=== PATIENT | female | born 1985 | race American Indian/Alaskan Native ===

== ENCOUNTER 2021-02-16 08:42 | Outpatient (CLI) | payer OTHER ==
--- NOTE | 2021-02-16 10:17 | Fluoroscopy Report ---
Barium swallow Indication: Preoperative evaluation for gastric sleeve surgery. Technique: Single and double contrast barium technique utilized to evaluate the esophagus. Findings: To begin the exam, swallowing was evaluated in the lateral position under direct fluorosco py. Swallowing was normal. No mucosal irregularity, mass, mass effect, or critical stenosis. There were no abnormal tertiary c ontractions as seen with dysmotility. No gastroesophageal reflux. Impression: Unremarkable exam. Fluoroscopic time: 0.9 minutes Number of fluoroscopic images: 13 Signer Name: Hira Ramos MD Signed: 02/16/2021 10:13 AM Workstation Name: [id number]
== END 2021-02-16 08:43 | disposition home or self-care (01) ==
LOC: FLUORO 08:42
PROVIDERS: ATTEND Surgery
DX: E66.01 Morbid (severe) obesity due to excess calories (principal)
CPT/HCPCS: 74221

== ENCOUNTER 2021-02-21 07:28 | Inpatient (IN) | payer OTHER ==
[2021-02-16 11:05] LABS: Hematocrit 38.5 % (30.3-42.9); Hemoglobin 12.6 gm/dl (10.1-14.3); Mean Corpuscular HGB Conc 33 % (30-34); Mean Corpuscular Volume 82 fl (79-97); Platelet Count 397 K/mm3 (140-440); Red Blood Count 4.68 M/mm3 (3.65-5.03); Red Cell Distribution Width 14.3 % (13.2-15.2)
[2021-02-16 11:35] LABS: Alanine Aminotransferase 18 units/L (7-56); Albumin 4.3 g/dL (3.9-5); Blood Urea Nitrogen 18 mg/dL (7-17); Calcium 9.8 mg/dL (8.4-10.2); Hemolysis Index 0
[2021-02-16 11:45] LABS: BUN/Creatinine Ratio 36
--- NOTE | 2021-02-16 16:39 | Anesthesia Consultation ---
Anesthesia Consult and Med Hx Date of service: 02/21/21 - Airway Anesthetic Teeth Evaluation: Good ROM Head & Neck: Adequate Mental/Hyoid Distance: Adequate Mallampati Class: Class II Intubation Access Assessment: Probably Good - Pulmonary Exam CTA: Yes - Cardiac Exam Cardiac Exam: RRR - Pre-Operative Health Status ASA Pre-Surgery Classification: ASA3 Proposed Anesthetic Plan: General - Pulmonary Hx Smoking: No Hx Respiratory Symptoms: No (PFTs reviewed) Hx Sleep Apnea: Yes (severe per sleep study; compliant w/ CPAP) - Cardiovascular System Hx Hypertension: No Hx Heart Attack/AMI: No (recent normal stress test) Hx Percutaneous Transluminal Coronary Angioplasty (PTCA): No Hx Cardia Arrhythmia: No - Central Nervous System CVA: No - Gastrointestinal Hx Gastroesophageal Reflux Disease: Yes - Endocrine Hx Renal Disease: No Hx Liver Disease: No Hx Insulin Dependent Diabetes: No Hx Non-Insulin Dependent Diabetes: No Hx Thyroid Disease: No - Other Systems Hx Obesity: Yes (BMI 42) - Additional Comments Anesthesia Medical History Comments: No hx anesthetic complications. Medical eval, sleep study, PFTs, and stress test results on chart.
[~2021-02-21 07:28] MED LIST: ENOXAPARIN 40 MG/0.4 ML INJ SUB-Q NR; GABAPENTIN 500 MG/10 ML ORAL LIQD PO NR; MIDAZOLAM 2 MG/2 ML INJ IV NR; SCOPOLAMINE TRANSDERMAL PATCH 72 HR TD NR
[2021-02-21] MEDS ORDERED: LACTATED RINGERS 1,000 ML IV SCH ×2 (08:15→15:00)
[2021-02-21] MEDS ORDERED: ENOXAPARIN 40 MG/0.4 ML INJ SUB-Q NR (09:00)
[2021-02-21] MEDS ORDERED: ONDANSETRON 4 MG/2 ML INJ IV PRN (09:12)
[2021-02-21] MEDS ORDERED: HYDROmorphone 1 MG/1 ML INJ IV PRN ×2 (09:12)
--- NOTE | 2021-02-21 09:13 | Anesthesia Day of Surgery ---
Anesthesia Day of Surgery - Day of Surgery Patient Examined: Yes Patient H&P Reviewed: Yes Patient is NPO: Yes
[2021-02-21] MEDS ORDERED: SCOPOLAMINE TRANSDERMAL PATCH 72 HR TD SCH (10:00)
[2021-02-21] MEDS: ACETAMINOPHEN IV 1,000 MG/100 ML BOTTLE IV NR ×2 (10:40→21:33)
[2021-02-21] MEDS ORDERED: LIDOCAINE 1%/EPINEPHRINE 1:100,000 VIAL (20 ML) INFILTRATI ONE ×2 (10:46→12:10)
[2021-02-21] MEDS ORDERED: BUPIVACAINE/PF (0.25%) 2.5 MG/ML 30 ML VIAL INFILTRATI ONE ×2 (10:46→12:10)
[2021-02-21] MEDS ORDERED: KETAMINE/STERILE WATER 50 MG/ML SYRINGE ONE (10:49)
[2021-02-21] MEDS ORDERED: ONDANSETRON 4 MG/2 ML INJ ONE (10:49)
[2021-02-21] MEDS ORDERED: ROCURONIUM 50 MG/5 ML INJ IV ONE ×2 (10:49→13:02)
[2021-02-21] MEDS ORDERED: dexAMETHasone 20 MG/5 ML VIAL ONE (10:49)
[2021-02-21] MEDS ORDERED: KETOROLAC 30 MG/1 ML INJ ONE (10:49)
[2021-02-21] MEDS ORDERED: LIDOCAINE (2%) 20 MG/1 ML VIAL 20 ML MDV INFILTRATI ONE (10:51)
[2021-02-21] MEDS ORDERED: MAGNESIUM SULFATE 4 GM/100 ML BAG IV ONE (10:52)
[2021-02-21] MEDS ORDERED: SODIUM CHLORIDE 0.9% IRR 1,500 ML BOTTLE IR ONE (12:10)
[2021-02-21] MEDS ORDERED: LIDOCAINE MPF (2%) 20 MG/1 ML VIAL 5 ML ONE (13:02)
[2021-02-21] MEDS ORDERED: PHENYLEPHRINE/NS 1,000 MCG/10 ML SYRINGE (OR USE) IV ONE (13:02)
[2021-02-21] MEDS ORDERED: SODIUM CHLORIDE P/F VIAL 10 ML 20 ML ONE (13:03)
[2021-02-21] MEDS ORDERED: SUGAMMADEX SODIUM 200 MG/2 ML VIAL IV ONE (13:16)
[2021-02-21] MEDS ORDERED: SODIUM CHLORIDE 0.9% 1000 ML 1,000 ML ONE (13:41)
[2021-02-21] MEDS ORDERED: METOCLOPRAMIDE 10 MG/2 ML INJ IV PRN (14:03)
--- NOTE | 2021-02-21 14:12 | Operative Report ---
Operative Report Operative Report: DATE:02/21/2021 Surgeon: Jenna Chen MD Personal Protection Specialist surgeon: Latesha petty CSA MD Pre-op Dx: morbid obesity, hiatal hernia Post-op Dx: morbid obesity, hiatal hernia Procedure: 1. laparoscopic sleeve gastrectomy, 2. hiatal hernia repair Anesthesia: GETA and TAP block EBL: <10ml Specimen: gastric remnant Complication: none immediate Indication: 35 year old female with a history of morbid obesity . Pt is here for sleeve gastrectomy for weight loss to achieve healthier weight and improve or resolve his co-morbidities. she expressed understanding of the risks and benefits. PROCEDURE IN DETAIL: After consent was reviewed, patient was taken back to the operating room, where patient was placed supine on the bed with both arms out. The patient's legs were doubly strapped to the bed. Patient had a foot board in place. Patient had a body warmer placed by anesthesia. General anesthesia was induced with successful endotracheal intubation. Patient was then prepped and draped in normal sterile surgical fashion. After a time-out was called, I made a stab incision in the left subcostal area and placed a Veress needle through this incision and insufflated the abdomen to 18 mmHg pressure. I then counted down a handsbreadth below the xiphoid process in the midline and slightly left lateral injected local anesthetic and made about 1 cm transverse incision. I then used a 5-mm Optiview trocar to enter into the abdomen. There was no gross injury to any intra-abdominal structures. I then placed a 30-degree scope through this port and inspected the abdomen. I then placed a 8-mm port in the right upper quadrant, and 1 5mm in the epigastric area below the costovertebral angle. I then placed a 15-mm port about a handsbreadth in the right mid abdomen. After which a 5mm port was placed in left upper quadrant port along the anterior axillary line in a similar fashion. A liver retractor was placed to the epigastric port to elevate the left lateral lobe and liver. There was a significant hiatal hernia appreciated and was accentuated with right and left crural dissection 360 degrees. The hiatus was noted to be about 3cm at its widest point with 2 cm of proximal stomach above the level of the hiatus. A 1/2 inch matheus drain was placed around the GE junction and used to manipulate the area to get a better full circumferential dissection. Hiatal hernia sac was dissected from the crura until the GE junction was resting about 2cm below the level of the diaphragm without tension. An anterior and posterior crura-plasty was preformed via U-stitches using surgidac suture. The anterior gastric fat pad was excised. Starting approximately 6 cm proximal to the pylorus, using a LigaSure device the short gastrics were taken all the way to the left rich. Once the lateral portion of the stomach was mobile anesthesia passed a 40 Moroccan bougie along the medial aspect to act as a stent. Using serial firings of endoscopic stapler to gold, followed by 4 blue, the lateral portion of the stomach was transected making sure to did not close to the 2 cm to the incisura. All staple loads were supported with Ethicon buttress strips. The sleeve stomach was seen to be without kink obstruction or twisting. The pressure was decreased to 10 mmHg. The staple line was inspected for approximately 5 minutes. There was no significant bleeding appreciated except for a slight loose at the most distal portion of the staple line. Bleeding was minimal and easily controlled two hemoclips at the distal staple line. Tisseel was then sprayed along the entirety of the staple line. The liver retractor was removed. A TAP block was performed with 60ml of 0.25% marcaine along bilateral mid axillary lines starting from the subcostal region to just below the level of the umbilicus This was after the gastric remnant was grasped and pulled into the 15 mm trocar site. The stomach was extracted via the 15 mm trocar site. After the fascia had to be stretched with a Noa clamp to easily remove the stomach, the fascia was closed using a juno ke device at the level of the fascia with an 0 PDS. trocars were removed under direct visualization. All skin incisions were closed with 4-0 Monocryl followed by Dermabond. Patient was awoken, extubated, and taken to recovery stable condition. All counts were correct.
[2021-02-21] MEDS ORDERED: hydrALAZINE 20 MG/1 ML INJ IV PRN (15:00)
[2021-02-21] MEDS: KETOROLAC 30 MG/1 ML INJ IV SCH ×2 (16:12→21:41)
[2021-02-21] MEDS: ACETAMINOPHEN IV 1,000 MG/100 ML BOTTLE IV SCH ×2 (16:12→21:55)
--- NOTE | 2021-02-21 16:14 | Post Anesthesia Evaluation ---
- Post Anesthesia Evaluation Patient Participated: Yes Airway Patent: Yes Stable Respiratory Function: Yes Nausea/Vomiting: No Temp > 96.8F: Yes Pain Manageable: Yes Adequeate Hydration: Yes Anesthesia Complications: No Block Receding Appropriately: Not Applicable Patient on Ventilator: No
[2021-02-21] MEDS: PANTOPRAZOLE 40 MG INJ IV SCH (19:07)
[2021-02-21] MEDS: MORPHINE 2 MG/1 ML INJ IV PRN ×2 (19:07→23:16)
[2021-02-21] MEDS: ONDANSETRON 4 MG/2 ML INJ IV PRN ×2 (21:33→21:41)
[2021-02-21] MEDS: metroNIDAZOLE/NS 500 MG/100 ML 500 MG/100 ML BAG IV NR ×2 (21:34→21:41)
[2021-02-21] MEDS: metroNIDAZOLE/NS 500 MG/100 ML 500 MG/100 ML BAG IV SCH (21:54)
[2021-02-21] MEDS: ceFAZolin/NS 1 GM/50 ML 1 GM/50 ML BAG IV SCH (23:16)
[2021-02-22] MEDS: ONDANSETRON 4 MG/2 ML INJ IV PRN ×3 (02:51→16:55)
[2021-02-22] MEDS: SIMETHICONE 80 MG CHEW TAB PO PRN ×2 (02:51→17:44)
[2021-02-22] MEDS: KETOROLAC 30 MG/1 ML INJ IV SCH ×3 (02:51→16:53)
[2021-02-22] MEDS: ceFAZolin/NS 1 GM/50 ML 1 GM/50 ML BAG IV SCH (04:19)
[2021-02-22 05:19] LABS: Basophils # (Auto) 0.1 K/mm3 (0.0-0.1); Basophils % (Auto) 0.6 % (0.0-1.8); Eosinophils % (Auto) 0.1 % (0.0-4.3); Hematocrit 35.2 % (30.3-42.9); Lymphocytes # (Auto) 0.9 K/mm3 (1.2-5.4); Mean Corpuscular HGB Conc 34 % (30-34); Mean Corpuscular Volume 83 fl (79-97); Monocytes # (Auto) 0.5 K/mm3 (0.0-0.8); Monocytes % (Auto) 5.3 % (0.0-7.3); Platelet Count 349 K/mm3 (140-440); Red Blood Count 4.26 M/mm3 (3.65-5.03); Red Cell Distribution Width 14.5 % (13.2-15.2)
[2021-02-22] MEDS: ACETAMINOPHEN IV 1,000 MG/100 ML BOTTLE IV SCH ×2 (05:19→10:19)
[2021-02-22] MEDS: metroNIDAZOLE/NS 500 MG/100 ML 500 MG/100 ML BAG IV SCH ×2 (05:20→13:55)
[2021-02-22 05:41] LABS: Alanine Aminotransferase 34 units/L (7-56); Blood Urea Nitrogen 9 mg/dL (7-17); Calcium 8.8 mg/dL (8.4-10.2); Hemolysis Index 7
[2021-02-22 05:43] LABS: BUN/Creatinine Ratio 15
[2021-02-22] MEDS: HYDROcodone/Acetaminophen 7.5-325MG-15ML ORAL LIQD PO PRN (09:59)
[2021-02-22] MEDS: ENOXAPARIN 40 MG/0.4 ML INJ SUB-Q SCH (10:07)
[2021-02-22] MEDS: PANTOPRAZOLE 40 MG INJ IV SCH (10:19)
--- NOTE | 2021-02-22 15:24 | Progress Note ---
Assessment and Plan Postop day #1 status post laparoscopic sleeve gastrectomy and laparoscopic hiatal hernia repair for large hiatal hernia. Patient is afebrile and stable. Due to hiatal hernia repair, patient is not drinking as much as she should. Encourage patient to take more frequent sips, will reevaluate tomorrow with possible discharge. Patient is showing no clinical signs of leak or bleeding. Subjective Date of service: 02/22/21 Narrative: No acute events overnight. Patient says that nausea and pain is controlled. She does have a tightness in her chest and discomfort when swallowing liquids. Patient is slowly sipping on liquids. Objective Vital Signs - 12hr 02/22/21 02/22/21 04:12 07:58 Temperature 98.7 F 99.0 F Pulse Rate 101 H 95 H Respiratory 16 18 Rate Blood Pressure 128/75 134/67 O2 Sat by Pulse 98 100 Oximetry - General physical appearance well developed, well nourished, no distress, no pain - Respiratory normal expansion, normal respiratory effort - Abdomen soft, other (Appropriately tender to palpation. Incisions clean dry and intact.) - Labs 02/22/21 04:43 02/22/21 04:43 Diabetes panel 02/22/21 Range/Units 04:43 Sodium 138 (137-145) mmol/L Potassium 4.3 (3.6-5.0) mmol/L Chloride 104.2 (98-107) mmol/L Carbon Dioxide 23 (22-30) mmol/L BUN 9 (7-17) mg/dL Creatinine 0.6 (0.6-1.2) mg/dL Glucose 108 H (65-100) mg/dL Calcium 8.8 (8.4-10.2) mg/dL AST 36 (5-40) units/L ALT 34 (7-56) units/L Alkaline Phosphatase 77 (35-129) units/L Total Protein 7.0 (6.3-8.2) g/dL Albumin 4.0 (3.9-5) g/dL Calcium panel 02/22/21 Range/Units 04:43 Calcium 8.8 (8.4-10.2) mg/dL Albumin 4.0 (3.9-5) g/dL Pituitary panel 02/22/21 Range/Units 04:43 Sodium 138 (137-145) mmol/L Potassium 4.3 (3.6-5.0) mmol/L Chloride 104.2 (98-107) mmol/L Carbon Dioxide 23 (22-30) mmol/L BUN 9 (7-17) mg/dL Creatinine 0.6 (0.6-1.2) mg/dL Glucose 108 H (65-100) mg/dL Calcium 8.8 (8.4-10.2) mg/dL Adrenal panel 02/22/21 Range/Units 04:43 Sodium 138 (137-145) mmol/L Potassium 4.3 (3.6-5.0) mmol/L Chloride 104.2 (98-107) mmol/L Carbon Dioxide 23 (22-30) mmol/L BUN 9 (7-17) mg/dL Creatinine 0.6 (0.6-1.2) mg/dL Glucose 108 H (65-100) mg/dL Calcium 8.8 (8.4-10.2) mg/dL Total Bilirubin 0.20 (0.1-1.2) mg/dL AST 36 (5-40) units/L ALT 34 (7-56) units/L Alkaline Phosphatase 77 (35-129) units/L Total Protein 7.0 (6.3-8.2) g/dL Albumin 4.0 (3.9-5) g/dL
[2021-02-22] MEDS: MORPHINE 2 MG/1 ML INJ IV PRN (16:55)
[2021-02-23] MEDS: KETOROLAC 30 MG/1 ML INJ IV SCH ×3 (00:13→09:03)
[2021-02-23] MEDS: MORPHINE 2 MG/1 ML INJ IV PRN (02:30)
[2021-02-23] MEDS: ONDANSETRON 4 MG/2 ML INJ IV PRN (02:32)
[2021-02-23] MEDS: PANTOPRAZOLE 40 MG INJ IV SCH (09:03)
[2021-02-23] MEDS: ENOXAPARIN 40 MG/0.4 ML INJ SUB-Q SCH (09:03)
[2021-02-23 10:00] LABS: Basophils # (Auto) 0.1 K/mm3 (0.0-0.1); Basophils % (Auto) 0.7 % (0.0-1.8); Eosinophils % (Auto) 0.5 % (0.0-4.3); Hematocrit 33.5 % (30.3-42.9); Hemoglobin 10.9 gm/dl (10.1-14.3); Lymphocytes # (Auto) 2.9 K/mm3 (1.2-5.4); Lymphocytes % (Auto) 43.3 % (13.4-35.0); Mean Corpuscular HGB Conc 33 % (30-34); Mean Corpuscular Volume 83 fl (79-97); Monocytes # (Auto) 0.4 K/mm3 (0.0-0.8); Monocytes % (Auto) 6.5 % (0.0-7.3); Platelet Count 310 K/mm3 (140-440); Red Blood Count 4.05 M/mm3 (3.65-5.03); Red Cell Distribution Width 14.7 % (13.2-15.2)
[2021-02-23 10:52] LABS: Alanine Aminotransferase 22 units/L (7-56); Albumin 3.7 g/dL (3.9-5); Blood Urea Nitrogen 12 mg/dL (7-17); Hemolysis Index 4
[2021-02-23 11:20] LABS: BUN/Creatinine Ratio 17
[2021-02-23 11:26] VITALS: BP 138/70
[2021-02-23] MEDS: HYDROcodone/Acetaminophen 7.5-325MG-15ML ORAL LIQD PO PRN (14:11)
--- NOTE | 2021-02-23 14:52 | Discharge Summary ---
Providers - Providers Date of Admission: 02/21/21 07:28 Date of discharge: 02/23/21 Attending physician: JESSI ALEX MD 02/21/21 14:04 Physical Therapy Evaluation and Treat [CONS] Routine Comment: Reason For Exam: s/p bariatric surgery Primary care physician: [employer] Hospitalization Reason for admission: s/p lap gastric sleeve Condition: Good Procedures: lap gastric sleeve with hiatal hernia repair Hospital course: Patient had an uneventful course status post laparoscopic sleeve gastrectomy with hiatal hernia repair. Patient is tolerating clear liquids with adequate pain control and ambulating without difficulty. Patient remains afebrile with normal vital signs and appropriate labs. Patient showed no clinical signs of leak or bleeding upon discharge. Disposition: - TO HOME OR SELFCARE Final Discharge Diagnosis (Prints w/discharge instructions): Morbid obesity, hiatal hernia, gastroesophageal reflux Core Measure Documentation - Palliative Care Palliative Care/ Comfort Measures: Not Applicable - Core Measures Any of the following diagnoses?: none Exam - Constitutional Vitals: Temp Pulse Resp BP Pulse Ox 98.6 F 75 18 138/70 93 02/23/21 11:17 02/23/21 11:17 02/23/21 11:17 02/23/21 11:17 02/23/21 11:17 General appearance: Present: no acute distress, well-nourished, obese - Respiratory Respiratory effort: normal - Cardiovascular Rhythm: regular Heart Sounds: Present: S1 & S2 - Extremities Extremities: no ischemia - Abdominal General gastrointestinal: Present: other (Soft, appropriately tender to palpation, incisions clean dry and intact.) Plan Activity: advance as tolerated Diet: clear liquids Wound: open to air, keep clean and dry Follow up with: PRIMARY CAREMD [Primary Care Provider] - 7 Days
[2021-02-24] MEDS ORDERED: PANTOPRAZOLE 40 MG TAB PO SCH (07:30)
--- OUTSIDE RECORDS SUMMARY | 2021-03-08 13:02 | External Medical Summary ---
:1985 Author Organization [facility], [facility] Address [address] [place] [address] Care Team Providers Name Role Phone Jenna Chen Unavailable [phone] PROBLEMS Type Condition ICD9-CM [id number] Onset Condition W/U Status Risk SNOM ED Notes Code Code Dates Status Code Problem Functional K30 Active confirmed 8638474 dyspepsia Problem Gastro-esopha K21.9 Active confirmed 249820 005 geal reflux disease without esophagitis Problem Sleep apnea, G47.30 Active confirmed 2532323 6 unspecified Problem Morbid E66.01 Active confirmed 950065984 (severe) obesity due to excess calories ALLERGIES No Known Allergies ENCOUNTERS from 1984 to 2021-02-21 Encounter Location Date Provider Diagnosis [facility] [address] Jan, Jenna Chen Morbi d (severe) obesity [facility] due to e xcess calories of [facility], E66.01 ; [place] [address] unspecified G4 7.30 ; Gastro-esophage al reflux disease without esophagitis K21 .9 and Diaphragmatic h ernia without obstruc tion or gangrene K44.9 IMMUNIZATIONS No Information SOCIAL HISTORY Sex Assigned At : Social History Observation Description Sex Assigned At Unknown REASON FOR REFERRAL from 1985 to 2021-02-21 Diagnosis 1 Morbid (severe) obesity due to excess calories (E66.01) Diagnosis 2 Sleep apnea, unspecified (G4 7.30) Diagnosis 3 Gastro-esophageal reflux dis ease without esophagitis (K21.9) Diagnosis 4 Functional dyspepsia (K30) Diagnosis 5 Diaphragmatic hernia without obstruction or gangrene (K44.9) Referral Organization [facility] Referring Provider First Name Jenna Referring Provider Last Name Gustavo Referring Provider Specialty Surgery Referred Provider [facility], - Referral Priority Routine VITAL SIGNS Height 64 in Jan, Weight 247.5 lbs Jan, Temperature 98.4 degrees Fahrenheit Jan, BMI 42.48 kg/m2 Jan, Blood pressure systolic 127 mm Hg Jan, Blood pressure diastolic 77 mm Hg Jan, MEDICATIONS Medication SIG (Take, Route, Notes Start Date End Date Status Frequency, Duration) Ondansetron HCl 4 MG 1-2 tablet Orally q Jan, Active 4-6 hours prn nausea for 30 day(s) HYDROcodone-Acetaminophe 15 ml as needed Orally Jan,Jan, Active n 7.5-325 MG/15ML every 6 hrs for 7 days Esomeprazole Magnesium 1 capsule Orally Once Jan, Active 40 MG a day for 30 day(s) PROCEDURES No Information RESULTS No Results REASON FOR VISIT PreOp Sleeve MEDICAL (GENERAL) HISTORY Type Description Date Medical History sleep apnea Medical History dyspepsia Surgical History fibroid embolization 07/2021 Goals Section No Information Health Concerns No Information MEDICAL EQUIPMENT No Information MENTAL STATUS No Information FUNCTIONAL STATUS No Information ASSESSMENTS Encounter Date Diagnosis Assessment Notes Treatment Notes Treatm ent Clinical Notes Jan, Morbid (severe) An hour was spent obesity due to with patient excess calories reinforcing diet, (ICD-10 - E66.01) vitamin requirements and lifestyle education, A quiz was administered and reviewed to verify understanding of intended procedure and post operative care. Consent forms were reviewed with patient and signed answering all questions, Pre-operative labs were ordered. Jan, Sleep apnea, Continue use of unspecified (ICD-10 CPAP machine, - G47.30) should resolve or greatly improve after weight loss surgery, and will titrate CPAP machine as tolerated. Jan, Gastro-esophageal should improve with reflux disease weight loss and without esophagitis repair of hiatal (ICD-10 - K21.9) hernia Jan, Diaphragmatic hernia will repair at time without obstruction of sleeve or gangrene (ICD-10 gastrectomy - K44.9) PLAN OF TREATMENT Medication Medication Name Sig Start Date Stop Date Ondansetron HCl 4 MG 1-2 tablet Orally q 4-6 Jan, hours prn nausea for 30 day(s) Esomeprazole Magnesium 40 MG 1 capsule Orally Once a day Jan, for 30 day(s) HYDROcodone-Acetaminophen 15 ml as needed Orally Jan, Jan, 7.5-325 MG/15ML every 6 hrs for 7 days Treatment Notes Assessment Notes Clinical Notes Morbid (severe) obesity due to An hour was spent with patien t excess calories reinforcing diet, vitamin requirements and lifestyle education, A quiz was administered and reviewed to verify understanding of intended procedure and post operative care. Consent forms were reviewed with patient and signed answering all questions, Pre-operative labs were ordered. Sleep apnea, unspecified Continue use of CPAP machine, should resolve or greatly improve after weight loss surgery, and will titrate CPAP machine as tolerated. Gastro-esophageal reflux disease should improve with weight loss and without esophagitis repair of hiatal hernia Diaphragmatic hernia without will repair at time of sleeve obstruction or gangrene gastrectomy Referrals Referral Date Details Next Appt Details for surgery Reason: Provider Name:Jenna Chen, 2021-01-26 8 09:30:00 AM, [address], [address], [place], [address], Insurance Providers Payer Name Payer Payer Insured Patient Coverage Coverage End Address Phone Name Relationship to Start Date Michael e Insured [employer] [address] Do rafi Lara O [facility] [id number]
== END 2021-02-23 15:35 | disposition home or self-care (01) | DRG 621 ==
LOC: 3A 07:28 → 3B-SURG 16:08
PROVIDERS: ADMIT Surgery; ATTEND Surgery
PROC: 0DB64Z3 Excision of Stomach, Percutaneous Endoscopic Approach, Vertical (ICD-10-PCS; principal; 2021-02-21)
PROC: 0BQT4ZZ Repair Diaphragm, Percutaneous Endoscopic Approach (ICD-10-PCS; 2021-02-21)
DX: E66.01 Morbid (severe) obesity due to excess calories (principal); K44.9 Diaphragmatic hernia without obstruction or gangrene; G47.30 Sleep apnea, unspecified; K21.9 Gastro-esophageal reflux disease without esophagitis; Z68.41 Body mass index [BMI] 40.0-44.9, adult; Z20.822 Contact with and (suspected) exposure to COVID-19
CPT/HCPCS: 36415; 80053; 84703; 85025; 85027; 88307; 88342; 94660; G0378; C9113; C9250; J0131; J0690; J1100; J1650; J1885; J2250; J2270; J2370; J2405; J2704; J3475; J3490; J7030; J7120; U0003

== ENCOUNTER 2021-03-08 11:37 | Observation (INO) | payer OTHER ==
--- NOTE | 2021-03-08 11:53 | Event Note ---
ED Screening Note ED Screening Note: had gastric sleeve on february [address] wolf having abd pain +n/v for two days no diarrhea no BM for a week still is passing gas PSHx hernia allergy:none LNMP early january sent by dr wolf for upper gi series This initial assessment/diagnostic orders/clinical plan/treatment(s) is/are subject to change based on patients health status, clinical progression and re- assessment by fellow clinical providers in the ED. Further treatment and workup at subsequent clinical providers discretion. Patient/guardian urged not to elope from the ED as their condition may be serious if not clinically assessed and managed. Initial orders include: labs, ua, xr
[2021-03-08 13:14] LABS: Basophils # (Auto) 0.1 K/mm3 (0.0-0.1); Eosinophils % (Auto) 0.5 % (0.0-4.3); Hemoglobin 14.1 gm/dl (10.1-14.3); Lymphocytes # (Auto) 1.9 K/mm3 (1.2-5.4); Lymphocytes % (Auto) 28.9 % (13.4-35.0); Mean Corpuscular HGB Conc 34 % (30-34); Mean Corpuscular Volume 82 fl (79-97); Monocytes # (Auto) 0.4 K/mm3 (0.0-0.8); Monocytes % (Auto) 5.5 % (0.0-7.3); Platelet Count 463 K/mm3 (140-440); Red Blood Count 5.11 M/mm3 (3.65-5.03); Red Cell Distribution Width 13.9 % (13.2-15.2)
[2021-03-08 13:23] LABS: Alanine Aminotransferase 66 units/L (7-56); Albumin 4.7 g/dL (3.9-5); BUN/Creatinine Ratio 20; Blood Urea Nitrogen 12 mg/dL (7-17); Calcium 10.1 mg/dL (8.4-10.2); Hemolysis Index 0
[2021-03-08 13:31] LABS: Bilirubin,Urine NEG (Negative); Blood,Urine NEG (Negative); Color,Urine Amber (Yellow); Mucus,Urine 3+ /HPF
[2021-03-08] MEDS ORDERED: SODIUM CHLORIDE 0.9% 1000 ML 1,000 ML IV ONE (16:33)
[2021-03-08] MEDS ORDERED: MORPHINE 4 MG/1 ML INJ IV ONE (16:33)
[2021-03-08] MEDS ORDERED: ONDANSETRON 4 MG/2 ML INJ IV ONE (16:33)
--- NOTE | 2021-03-08 18:08 | Cat Scan Report ---
CT ABDOMEN AND PELVIS WITH CONTRAST INDICATION / CLINICAL INFORMATION: abd pain, N/V, gastric sleeve on february 21. TECHNIQUE: Axial CT images were obtained through the abdomen and pelvis after 100 cc of Omnipaque [address] scans at this location are performed using CT dose reduction for ALARA by means of automated exposure control. COMPARISON: None available. FINDINGS: LOWER CHEST: No significant abnormality. LIVER: No significant abnormality. GALLBLADDER: No significant abnormality. BILE DUCTS: No significant abnormality. PANCREAS: No significant abnormality. SPLEEN: No significant abnormality. ADRENALS: No significant abnormality. RIGHT KIDNEY / URETER: No significant abnormality. LEFT KIDNEY / URETER: No significant abnormality. STOMACH / SMALL BOWEL: Changes of gastric sleeve procedure are noted. There is no obstruction. There is some apparent wall thickening in the stomach raising the possibility of gastritis. COLON: No significant abnormality. APPENDIX: No significant abnormality. PERITONEUM: No free fluid. No free air. No fluid collection. LYMPH NODES: No significant adenopathy. AORTA / ARTERIES: No significant abnormality. IVC / VEINS: No significant abnormality. URINARY BLADDER: No significant abnormality. REPRODUCTIVE ORGANS: There are several uterine fibroids including a 4 cm exophytic fibroid ADDITIONAL FINDINGS: None. SKELETAL SYSTEM: No significant abnormality. IMPRESSION: 1. Changes of gastric sleeve procedure noted. There is some wall thickening in the stomach raising po ssibility of gastritis. 2. There is no obstruction, inflammation, or free air. There are no abnormal fluid collections. Signer Name: Veto Campo MD Signed: 03/08/2021 6:04 PM Workstation Name: [id number]
[2021-03-08] MEDS ORDERED: FAMOTIDINE 20 MG/2 ML INJ IV ONE (18:18)
--- NOTE | 2021-03-08 19:02 | Emergency Department Report ---
HPI - General Chief Complaint: Weakness Time Seen by Provider: 03/08/21 11:51 - HPI HPI: Room 1 The patient is a 35-year-old female present with a chief complaint of nausea vomiting. Patient status post a gastric sleeve procedure performed by Dr. Catrina olson 02/21/2021. Patient states over the past 2 to 3 days she is right upper quadrant epigastric abdominal pain and intractable nausea vomiting. Patient states she is unable to tolerate solids or liquids. ED Past Medical Hx - Past Medical History Hx Heart Attack/AMI: No (recent normal stress test) Hx GERD: Yes - Surgical History Additional Surgical History: GASTRIC SLEEVE/ HERNIA - Family History Family history: no significant - Social History Smoking Status: Never Smoker Substance Use Type: None (Denies illicit drug use) - Medications Home Medications: Home Medications Medication Instructions Recorded Confirmed Last Taken Type No Known Home Medications [No 02/15/21 02/15/21 Unknown History Reported Home Medications] ED Review of Systems ROS: Stated complaint: CHEST PAIN Other details as noted in HPI Constitutional: no symptoms reported Eyes: denies: eye pain ENT: denies: throat pain Respiratory: no symptoms reported Cardiovascular: denies: chest pain Endocrine: no symptoms reported Gastrointestinal: abdominal pain, nausea, vomiting Genitourinary: denies: dysuria Musculoskeletal: denies: back pain Neurological: denies: headache Physical Exam - Physical Exam Vital Signs: Vital Signs 03/08/21 03/08/21 11:48 16:44 Temperature 98.6 F Pulse Rate 90 94 H Respiratory 22 24 Rate Blood Pressure 150/99 Blood Pressure 140/105 [Right] O2 Sat by Pulse 93 100 Oximetry Physical Exam: GENERAL: The patient is well-developed well-nourished female lying on stretcher not appearing to be in acute distress. [] HEENT: Normocephalic. Atraumatic. Extraocular motions are intact. Patient has moist mucous membranes. NECK: Supple. Trachea midline CHEST/LUNGS: Clear to auscultation. There is no respiratory distress noted. HEART/CARDIOVASCULAR: Regular. There is no tachycardia. There is no gallop rub or murmur. ABDOMEN: Abdomen is soft, with tenderness to palpation in the right upper quadrant and epigastric region. Patient has normal bowel sounds. There is no abdominal distention. SKIN: There is no rash. There is no edema. There is no diaphoresis. Surgical sites are clean dry and intact NEURO: The patient is awake, alert, and oriented. The patient is cooperative. The patient has no focal neurologic deficits. The patient has normal speech MUSCULOSKELETAL: There is no evidence of acute injury. ED Course Vital Signs 03/08/21 03/08/21 11:48 16:44 Temperature 98.6 F Pulse Rate 90 94 H Respiratory 22 24 Rate Blood Pressure 150/99 Blood Pressure 140/105 [Right] O2 Sat by Pulse 93 100 Oximetry ED Medical Decision Making - Lab Data Result diagrams: 03/08/21 12:25 03/08/21 12:25 Laboratory Tests 03/08/21 03/08/21 03/08/21 12:25 12:25 12:25 WBC 6.6 RBC 5.11 H Hgb 14.1 Hct 42.0 MCV 82 MCH 28 MCHC 34 RDW 13.9 Plt Count 463 H Lymph % (Auto) 28.9 [place] % (Auto) 5.5 Eos % (Auto) 0.5 Baso % (Auto) 1.0 Lymph # (Auto) 1.9 [place] # (Auto) 0.4 Eos # (Auto) 0.0 Baso # (Auto) 0.1 Seg Neutrophils % 64.1 Seg Neutrophils # 4.2 Sodium 143 Potassium 3.9 Chloride 105.1 Carbon Dioxide 21 L Anion Gap 21 BUN 12 Creatinine 0.6 Estimated GFR > 60 BUN/Creatinine Ratio 20 Glucose 105 H Calcium 10.1 Total Bilirubin 0.50 AST 60 H ALT 66 H Alkaline Phosphatase 109 Total Protein 8.7 H Albumin 4.7 Albumin/Globulin Ratio 1.2 Lipase 74 H HCG, Qual Negative Urine Color Urine Turbidity Urine pH Ur Specific [place] Urine Protein Urine Glucose (UA) Urine Ketones Urine Blood Urine Nitrite Urine Bilirubin Urine Urobilinogen Ur Leukocyte Esterase Urine WBC (Auto) Urine RBC (Auto) U Epithel Cells (Auto) Urine Mucus 03/08/21 12:41 WBC RBC Hgb Hct MCV MCH MCHC RDW Plt Count Lymph % (Auto) [place] % (Auto) Eos % (Auto) Baso % (Auto) Lymph # (Auto) [place] # (Auto) Eos # (Auto) Baso # (Auto) Seg Neutrophils % Seg Neutrophils # Sodium Potassium Chloride Carbon Dioxide Anion Gap BUN Creatinine Estimated GFR BUN/Creatinine Ratio Glucose Calcium Total Bilirubin AST ALT Alkaline Phosphatase Total Protein Albumin Albumin/Globulin Ratio Lipase HCG, Qual Urine Color [place]na Urine Turbidity Clear Urine pH 5.0 Ur Specific [place] 1.029 Urine Protein 30 mg/dl Urine Glucose (UA) Neg Urine Ketones 80 Urine Blood Neg Urine Nitrite Neg Urine Bilirubin Neg Urine Urobilinogen 4.0 Ur Leukocyte Esterase Neg Urine WBC (Auto) 2.0 Urine RBC (Auto) 1.0 U Epithel Cells (Auto) 1.0 Urine Mucus 3+ - Radiology Data Radiology results: report reviewed (CT abdomen pelvis), image reviewed (CT abdomen pelvis) [facility] [address] [place] [address] Cat Scan Report Signed Patient: RUSSEL JACKSON MR#: [id number] : 1985 Acct:[id number] Age/Sex: 35 / F ADM Date: 03/08/21 Loc: ED Attending Dr: Ordering Physician: DANNA RICHARDSON Date of Service: 03/08/21 Procedure(s): CT abdomen pelvis w con Accession Number(s): [id number] cc: DANNA RIHCARDSON CT ABDOMEN AND PELVIS WITH CONTRAST INDICATION / CLINICAL INFORMATION: abd pain, N/V, gastric sleeve on february 21. TECHNIQUE: Axial CT images were obtained through the abdomen and pelvis after 100 cc of Omnipaque [address] All [address] scans at this location are performed using CT dose reduction for ALARA by means of automated exposure control. COMPARISON: None available. FINDINGS: LOWER CHEST: No significant abnormality. LIVER: No significant abnormality. GALLBLADDER: No significant abnormality. BILE DUCTS: No significant abnormality. PANCREAS: No significant abnormality. SPLEEN: No significant abnormality. ADRENALS: No significant abnormality. RIGHT KIDNEY / URETER: No significant abnormality. LEFT KIDNEY / URETER: No significant abnormality. STOMACH / SMALL BOWEL: Changes of gastric sleeve procedure are noted. There is no obstruction. There is some apparent wall thickening in the stomach raising the possibility of gastritis. COLON: No significant abnormality. APPENDIX: No significant abnormality. PERITONEUM: No free fluid. No free air. No fluid collection. LYMPH NODES: No significant adenopathy. AORTA / ARTERIES: No significant abnormality. IVC / VEINS: No significant abnormality. URINARY BLADDER: No significant abnormality. REPRODUCTIVE ORGANS: There are several uterine fibroids including a 4 cm exophytic fibroid ADDITIONAL FINDINGS: None. SKELETAL SYSTEM: No significant abnormality. IMPRESSION: 1. Changes of gastric sleeve procedure noted. There is some wall thickening in the stomach raising possibility of gastritis. 2. There is no obstruction, inflammation, or free air. There are no abnormal fluid collections. Signer Name: Veto Campo MD Signed: 03/08/2021 6:04 PM Workstation Name: [id number] Transcribed By: Dictated By: Veto Campo MD Electronically Authenticated By: Veto Campo MD Signed Date/Time: 03/08/211803 DD/ 58 TD/TT: Print Cancel - Medical Decision Making Screening note from DANNA Earl reviewed. Case discussed with Dr. Cole who request the patient be admitted for IV hydration - Differential Diagnosis Obstruction, intractable nausea vomiting, Critical care attestation.: If time is entered above; I have spent that time in minutes in the direct care of this critically ill patient, excluding procedure time. ED Disposition Clinical Impression: Intractable nausea and vomiting, Dehydration Disposition: DC-09 OP ADMIT IP TO THIS HOSP Is pt being admited?: Yes Does the pt Need Aspirin: No Condition: Fair Time of Disposition: 19:05 (Hospitalist paged (Dr. Vargas))
[2021-03-08] MEDS ORDERED: LACTATED RINGERS 1,000 ML IV SCH (19:15)
[2021-03-08] MEDS ORDERED: MORPHINE 4 MG/1 ML INJ ONE (19:52)
[2021-03-08] MEDS ORDERED: ONDANSETRON 4 MG/2 ML INJ ONE (19:52)
--- NOTE | 2021-03-08 20:05 | History and Physical Report ---
History of Present Illness Date of examination: 03/08/21 Date of admission: 03/08/2020 Chief complaint: Persistent vomiting for 1 day History of present illness: 35-year-old -[place] female with history of obesity and GERD with recent gastric sleeve surgery on February 21, 2021 comes in for epigastric discomfort and persistent nausea and vomiting for the last 24 hours. Vomited about 6-8 times. Unable to hold anything. Patient did well from 28 to x-ray which is about 15 days. Precipitating factor is unknown. Gastric sleeve surgery done in [facility] - Past Medical History --Heart Attack/AMI: No (recent normal stress test) --GERD: Yes - Surgical History --GASTRIC SLEEVE/ HERNIA - Family History -No significant - Social History Smoking Status: Never Smoker Substance Use Type: None (Denies illicit drug use) - Medications Home Medications: Home Medications Medication Instructions Recorded Confirmed Last Taken Type No Known Home Medications [No 02/15/21 02/15/21 Unknown History Reported Home Medications] Review of Systems ROS: Stated complaint: CHEST PAIN Other details as noted in HPI Constitutional: no symptoms reported Eyes: denies: eye pain ENT: denies: throat pain Respiratory: no symptoms reported Cardiovascular: denies: chest pain Endocrine: no symptoms reported Gastrointestinal: abdominal pain, nausea, vomiting Genitourinary: denies: dysuria Musculoskeletal: denies: back pain Neurological: denies: headache Medications and Allergies Allergies Allergy/AdvReac Type Severity Reaction Status Date / Time No Known Allergies Allergy Verified 03/08/21 11:44 Home Medications Medication Instructions Recorded Confirmed Last Taken Type No Known Home Medications [No 02/15/21 02/15/21 Unknown History Reported Home Medications] Active Meds: Active Medications Lactated Ringer's (Lactated Ringers) 1,000 mls @ 150 mls/hr IV DIRECT LESLIE Exam - Constitutional Vitals: Temp Pulse Resp BP Pulse Ox 98.6 F 94 H 24 140/105 100 03/08/21 11:48 03/08/21 16:44 03/08/21 16:44 03/08/21 16:44 03/08/21 16:44 General appearance: Present: no acute distress, well-nourished - EENT Eyes: Present: PERRL ENT: hearing intact, clear oral mucosa - Neck Neck: Present: supple, normal ROM - Respiratory Respiratory effort: normal Respiratory: bilateral: CTA - Cardiovascular Heart rate: 78 Rhythm: regular Heart Sounds: Present: S1 & S2. Absent: rub, click - Extremities Extremities: no ischemia, pulses intact, pulses symmetrical, No edema Peripheral Pulses: within normal limits - Abdominal General gastrointestinal: Present: soft, non-tender, non-distended, normal bowel sounds Localized gastrointestinal: tender: diffuse Female genitourinary: Present: normal - Rectal Rectal Exam: deferred - Integumentary Integumentary: Present: clear, warm, dry - Musculoskeletal Musculoskeletal: gait normal, strength equal bilaterally - Psychiatric Psychiatric: appropriate mood/affect, intact judgment & insight - Neurologic Neurologic: CNII-XII intact, moves all extremities - Allied Health Allied health notes reviewed: nursing, case management Results - Labs CBC & Chem 7: 03/09/21 05:00 03/09/21 05:00 Labs: Laboratory Last Values WBC 6.6 K/mm3 (4.5-11.0) 03/08/21 12:25 RBC 5.11 M/mm3 (3.65-5.03) H 03/08/21 12:25 Hgb 14.1 gm/dl (10.1-14.3) 03/08/21 12:25 Hct 42.0 % (30.3-42.9) 03/08/21 12:25 MCV 82 fl (79-97) 03/08/21 12:25 MCH 28 pg (28-32) 03/08/21 12:25 MCHC 34 % (30-34) 03/08/21 12:25 RDW 13.9 % (13.2-15.2) 03/08/21 12:25 Plt Count 463 K/mm3 (140-440) H 03/08/21 12:25 Lymph % (Auto) 28.9 % (13.4-35.0) 03/08/21 12:25 [place] % (Auto) 5.5 % (0.0-7.3) 03/08/21 12:25 Eos % (Auto) 0.5 % (0.0-4.3) 03/08/21 12:25 Baso % (Auto) 1.0 % (0.0-1.8) 03/08/21 12:25 Lymph # (Auto) 1.9 K/mm3 (1.2-5.4) 03/08/21 12:25 [place] # (Auto) 0.4 K/mm3 (0.0-0.8) 03/08/21 12:25 Eos # (Auto) 0.0 K/mm3 (0.0-0.4) 03/08/21 12:25 Baso # (Auto) 0.1 K/mm3 (0.0-0.1) 03/08/21 12:25 Seg Neutrophils % 64.1 % (40.0-70.0) 03/08/21 12:25 Seg Neutrophils # 4.2 K/mm3 (1.8-7.7) 03/08/21 12:25 Sodium 143 mmol/L (137-145) 03/08/21 12:25 Potassium 3.9 mmol/L (3.6-5.0) 03/08/21 12:25 Chloride 105.1 mmol/L (98-107) 03/08/21 12:25 Carbon Dioxide 21 mmol/L (22-30) L 03/08/21 12:25 Anion Gap 21 mmol/L 03/08/21 12:25 BUN 12 mg/dL (7-17) 03/08/21 12:25 Creatinine 0.6 mg/dL (0.6-1.2) 03/08/21 12:25 Estimated GFR > 60 ml/min 03/08/21 12:25 BUN/Creatinine Ratio 20 % 03/08/21 12:25 Glucose 105 mg/dL (65-100) H 03/08/21 12:25 Calcium 10.1 mg/dL (8.4-10.2) 03/08/21 12:25 Total Bilirubin 0.50 mg/dL (0.1-1.2) 03/08/21 12:25 AST 60 units/L (5-40) H 03/08/21 12:25 ALT 66 units/L (7-56) H 03/08/21 12:25 Alkaline Phosphatase 109 units/L (35-129) 03/08/21 12:25 Total Protein 8.7 g/dL (6.3-8.2) H 03/08/21 12:25 Albumin 4.7 g/dL (3.9-5) 03/08/21 12:25 Albumin/Globulin Ratio 1.2 % 03/08/21 12:25 Lipase 74 units/L (13-60) H 03/08/21 12:25 HCG, Qual Negative (Negative) 03/08/21 12:25 Urine Color [place] (Yellow) 03/08/21 12:41 Urine Turbidity Clear (Clear) 03/08/21 12:41 Urine pH 5.0 (5.0-7.0) 03/08/21 12:41 Ur Specific [place] 1.029 (1.003-1.030) 03/08/21 12:41 Urine Protein 30 mg/dl mg/dL (Negative) 03/08/21 12:41 Urine Glucose (UA) Neg mg/dL (Negative) 03/08/21 12:41 Urine Ketones 80 mg/dL (Negative) 03/08/21 12:41 Urine Blood Neg (Negative) 03/08/21 12:41 Urine Nitrite Neg (Negative) 03/08/21 12:41 Urine Bilirubin Neg (Negative) 03/08/21 12:41 Urine Urobilinogen 4.0 mg/dL (<2.0) 03/08/21 12:41 Ur Leukocyte Esterase Neg (Negative) 03/08/21 12:41 Urine WBC (Auto) 2.0 /HPF (0.0-6.0) 03/08/21 12:41 Urine RBC (Auto) 1.0 /HPF (0.0-6.0) 03/08/21 12:41 U Epithel Cells (Auto) 1.0 /HPF (0-13.0) 03/08/21 12:41 Urine Mucus 3+ /HPF 03/08/21 12:41 Short CBC 03/08/21 03/09/21 Range/Units 12:25 05:00 WBC 6.6 7.0 (4.5-11.0) K/mm3 Hgb 14.1 12.1 (10.1-14.3) gm/dl Hct 42.0 36.1 (30.3-42.9) % Plt Count 463 H 377 (140-440) K/mm3 BMP 03/08/21 03/09/21 12:25 05:00 Sodium 143 144 Potassium 3.9 3.7 Chloride 105.1 109.3 H Carbon Dioxide 21 L 22 BUN 12 12 Creatinine 0.6 0.5 L Glucose 105 H 125 H Calcium 10.1 9.3 Liver Function 03/08/21 03/09/21 Range/Units 12:25 05:00 Total Bilirubin 0.50 0.50 (0.1-1.2) mg/dL AST 60 H 42 H (5-40) units/L ALT 66 H 57 H (7-56) units/L Alkaline Phosphatase 109 89 (35-129) units/L Albumin 4.7 3.9 (3.9-5) g/dL Urine 03/08/21 Range/Units 12:41 Urine Color [place] (Yellow) Urine pH 5.0 (5.0-7.0) Ur Specific [place] 1.029 (1.003-1.030) Urine Protein 30 mg/dl (Negative) mg/dL Urine Glucose (UA) Neg (Negative) mg/dL Assessment and Plan Advance Directives: Yes (Full code) VTE prophylaxis?: Chemical Plan of care discussed with patient/family: Yes - Patient Problems (1) Intractable nausea and vomiting Current Visit: Yes Status: Acute Plan to address problem: IVF normal saline for now IV Reglan and IV Zofran for now 's surgery consult requested GI consult also requested (2) Dehydration Current Visit: Yes Status: Acute Plan to address problem: IV normal saline for now (3) DVT prophylaxis Current Visit: Yes Status: Acute Plan to address problem: On heparin and GI prophylaxis (4) Acute gastritis Current Visit: Yes Status: Acute Qualifiers: Gastritis type: unspecified gastritis Plan to address problem: IV Protonix initiated
[2021-03-08] MEDS ORDERED: ONDANSETRON 4 MG/2 ML INJ IV PRN (20:08)
[2021-03-08] MEDS ORDERED: ACETAMINOPHEN 325 MG TAB PO PRN (20:08)
[2021-03-08] MEDS: D5W/0.9% NACL 1,000 ML IV SCH (22:29)
[2021-03-08] MEDS: MORPHINE 2 MG/1 ML INJ IV PRN (22:30)
[2021-03-08] MEDS: HEPARIN 5,000 UNIT/1 ML VIAL SUB-Q SCH (22:30)
[2021-03-09 05:21] LABS: Basophils # (Auto) 0.1 K/mm3 (0.0-0.1); Basophils % (Auto) 1.3 % (0.0-1.8); Eosinophils # (Auto) 0.1 K/mm3 (0.0-0.4); Hematocrit 36.1 % (30.3-42.9); Hemoglobin 12.1 gm/dl (10.1-14.3); Lymphocytes # (Auto) 3.1 K/mm3 (1.2-5.4); Lymphocytes % (Auto) 44.2 % (13.4-35.0); Mean Corpuscular HGB Conc 34 % (30-34); Mean Corpuscular Volume 83 fl (79-97); Monocytes # (Auto) 0.6 K/mm3 (0.0-0.8); Monocytes % (Auto) 8.9 % (0.0-7.3); Platelet Count 377 K/mm3 (140-440); Red Blood Count 4.37 M/mm3 (3.65-5.03); Red Cell Distribution Width 13.9 % (13.2-15.2)
[2021-03-09] MEDS: MORPHINE 2 MG/1 ML INJ IV PRN ×3 (05:54→17:08)
[2021-03-09] MEDS: D5W/0.9% NACL 1,000 ML IV SCH ×3 (06:04→22:49)
[2021-03-09 07:05] LABS: Alanine Aminotransferase 57 units/L (7-56); Albumin 3.9 g/dL (3.9-5); Blood Urea Nitrogen 12 mg/dL (7-17); Calcium 9.3 mg/dL (8.4-10.2); Hemolysis Index 6
[2021-03-09 07:14] LABS: BUN/Creatinine Ratio 24
--- NOTE | 2021-03-09 09:09 | Consultation ---
History of Present Illness Consult date: 03/09/21 Reason for consult: other (Nausea) Chief complaint: Nausea vomiting - History of present illness History of present illness: 35-year-old female status post laparoscopic sleeve gastrectomy and hiatal hernia repair on 02/21/[address] Chen who presents to the emergency room with weakness and nausea and vomiting for the past 4 days. Patient has not been able to tolerate her bariatric stage I diet including water. She also complains of pain at her incision sites and in the epigastrium from the vomiting. The emesis was clear without blood or bile. No fevers or chills. No chest pain or shortness of breath. Patient has been taking Zofran without any improvement in symptoms. She was ordered Phenergan suppositories and Reglan 1 day ago which she states also did not help. Therefore she was directed to come to the emergency room for further work-up and treatment. Patient had a CT scan of the abdomen and pelvis in the ER which showed possible mild gastritis and postsurgical changes without any acute findings. She was admitted to the hospital for supportive care, IV hydration, IV antiemetics. Today the patient states she feels better. She was tolerating sips of clear liquids overnight. No further vomiting. Past History Past Medical History: other (Morbid obesity) Past Surgical History: Other (Laparoscopic sleeve gastrectomy with hiatal hernia repair) Social history: no significant social history Family history: no significant family history Medications and Allergies Allergies Allergy/AdvReac Type Severity Reaction Status Date / Time No Known Allergies Allergy Verified 03/08/21 11:44 Home Medications Medication Instructions Recorded Confirmed Last Taken Type No Known Home Medications [No 02/15/21 03/09/21 Unknown History Reported Home Medications] Active Meds: Active Medications Acetaminophen (Acetaminophen 325 Mg Tab) 650 mg PO Q4H PRN PRN Reason: Pain MILD(1-3)/Fever >100.5/RASMUSSEN Heparin Sodium (Porcine) (Heparin 5,000 Unit/1 Ml Vial) 5,000 unit SUB-Q Q12HR LESLIE Last Admin: 03/08/21 22:30 Dose: 5,000 unit Documented by: Hydromorphone HCl (Hydromorphone 1 Mg/1 Ml Inj) 1 mg IV Q3H PRN PRN Reason: Pain , Severe (7-10) Metoclopramide HCl (Metoclopramide 10 Mg/2 Ml Inj) 10 mg IV Q6H LESLIE Morphine Sulfate (Morphine 2 Mg/1 Ml Inj) 2 mg IV Q4H PRN PRN Reason: Pain, Moderate (4-6) Last Admin: 03/09/21 05:54 Dose: 2 mg Documented by: Ondansetron HCl (Ondansetron 4 Mg/2 Ml Inj) 4 mg IV Q6H PRN PRN Reason: Nausea And Vomiting Pantoprazole Sodium (Pantoprazole 40 Mg Inj) 40 mg IV BID [facility] Promethazine HCl (Promethazine 12.5 Mg Rect Supp) 12.5 mg DC Q6H PRN PRN Reason: Nausea And Vomiting Sodium Chloride (Sodium Chloride 0.9% 10 Ml Flush Syringe) 10 ml IV BID [facility] Last Admin: 03/08/21 22:31 Dose: 10 ml Documented by: Sodium Chloride (Sodium Chloride 0.9% 10 Ml Flush Syringe) 10 ml IV PRN PRN PRN Reason: LINE FLUSH Review of Systems All systems: negative (10 point ROS performed and negative except for that listed in HPI) Exam Vital Signs Temp Pulse Resp BP Pulse Ox 98.6 F 90 22 150/99 93 03/08/21 11:48 03/08/21 11:48 03/08/21 11:48 03/08/21 11:48 03/08/21 11:48 Narrative exam: Gen.: Awake, alert, oriented x3. No apparent distress ENT: Trachea midline. No lymphadenopathy. No scleral icterus or conjunctival pallor CV: S1, S2 present Respiratory: No audible wheezes Abdomen: Soft, nondistended, mild tenderness to palpation near right sided incision. All incisions are clean, dry, intact without erythema. No rebound, rigidity, guarding Extremities: No clubbing, cyanosis, edema Results - Labs 03/09/21 05:00 03/09/21 05:00 Abnormal lab results 03/08/21 03/08/21 03/09/21 Range/Units 12:25 12:25 05:00 RBC 5.11 H (3.65-5.03) M/mm3 Plt Count 463 H (140-440) K/mm3 Lymph % (Auto) 44.2 H (13.4-35.0) % [place] % (Auto) 8.9 H (0.0-7.3) % Chloride (98-107) mmol/L Carbon Dioxide 21 L (22-30) mmol/L Creatinine (0.6-1.2) mg/dL Glucose 105 H (65-100) mg/dL AST 60 H (5-40) units/L ALT 66 H (7-56) units/L Total Protein 8.7 H (6.3-8.2) g/dL Lipase 74 H (13-60) units/L 03/09/21 Range/Units 05:00 RBC (3.65-5.03) M/mm3 Plt Count (140-440) K/mm3 Lymph % (Auto) (13.4-35.0) % [place] % (Auto) (0.0-7.3) % Chloride 109.3 H (98-107) mmol/L Carbon Dioxide (22-30) mmol/L Creatinine 0.5 L (0.6-1.2) mg/dL Glucose 125 H (65-100) mg/dL AST 42 H (5-40) units/L ALT 57 H (7-56) units/L Total Protein (6.3-8.2) g/dL Lipase (13-60) units/L Diabetes panel 03/08/21 03/09/21 Range/Units 12:25 05:00 Sodium 143 144 (137-145) mmol/L Potassium 3.9 3.7 (3.6-5.0) mmol/L Chloride 105.1 109.3 H (98-107) mmol/L Carbon Dioxide 21 L 22 (22-30) mmol/L BUN 12 12 (7-17) mg/dL Creatinine 0.6 0.5 L (0.6-1.2) mg/dL Glucose 105 H 125 H (65-100) mg/dL Calcium 10.1 9.3 (8.4-10.2) mg/dL AST 60 H 42 H (5-40) units/L ALT 66 H 57 H (7-56) units/L Alkaline Phosphatase 109 89 (35-129) units/L Total Protein 8.7 H 7.2 (6.3-8.2) g/dL Albumin 4.7 3.9 (3.9-5) g/dL Calcium panel 03/08/21 03/09/21 Range/Units 12:25 05:00 Calcium 10.1 9.3 (8.4-10.2) mg/dL Albumin 4.7 3.9 (3.9-5) g/dL Pituitary panel 03/08/21 03/09/21 Range/Units 12:25 05:00 Sodium 143 144 (137-145) mmol/L Potassium 3.9 3.7 (3.6-5.0) mmol/L Chloride 105.1 109.3 H (98-107) mmol/L Carbon Dioxide 21 L 22 (22-30) mmol/L BUN 12 12 (7-17) mg/dL Creatinine 0.6 0.5 L (0.6-1.2) mg/dL Glucose 105 H 125 H (65-100) mg/dL Calcium 10.1 9.3 (8.4-10.2) mg/dL Adrenal panel 03/08/21 03/09/21 Range/Units 12:25 05:00 Sodium 143 144 (137-145) mmol/L Potassium 3.9 3.7 (3.6-5.0) mmol/L Chloride 105.1 109.3 H (98-107) mmol/L Carbon Dioxide 21 L 22 (22-30) mmol/L BUN 12 12 (7-17) mg/dL Creatinine 0.6 0.5 L (0.6-1.2) mg/dL Glucose 105 H 125 H (65-100) mg/dL Calcium 10.1 9.3 (8.4-10.2) mg/dL Total Bilirubin 0.50 0.50 (0.1-1.2) mg/dL AST 60 H 42 H (5-40) units/L ALT 66 H 57 H (7-56) units/L Alkaline Phosphatase 109 89 (35-129) units/L Total Protein 8.7 H 7.2 (6.3-8.2) g/dL Albumin 4.7 3.9 (3.9-5) g/dL - Imaging CT scan - abdomen: report reviewed, image reviewed CT scan - pelvis: report reviewed, image reviewed Additional studies: Upper GI series images and report reviewed Assessment and Plan 35 yo F s/p lap gastric sleeve, hiatal hernia repair on 02/21/21 now with intractable n/v CT A/P - post op gastric sleeve changes, no hiatal hernia. No free fluid, free air. Possible mild gastritis Plan: 1. Start bariatric stage I diet with protein supplements 2. IVF 3. UGI series performed which shows mild reflux but no obstruction. 4. prn zofran IV and phenergan DC 5. reglan 10mg IV q6 scheduled 6. prn pain control 7. OOB/ambulate 8. PPI iv BID We will monitor patient's clinical course. If she is tolerating a diet and continues to improve, will plan for discharge tomorrow Discussed plan with Dr. Chen
--- NOTE | 2021-03-09 09:44 | Gastroenterology Consultation ---
History of Present Illness - Reason for Consult Consult date: 03/09/21 N/V/epigastric pain Requesting physician: RHIANNON AKINS - History of Present Illness The patient is a 35 yo female 2 weeks out from gastric sleeve surgery. She had a normal EGD prior to surgery, no complications noted during surgery, and is compliant with medications afterwards. A CT on admit showed mild gastritis, but no other lesions, including no abscess or obstruction. She has had no melena or significant hematemesis. She has lost an (expected) 25 pounds, and says she was on the bariatric diet plan. She denies excess NSAID use. Past History Past Medical History: other (Morbid obesity, KATALINA) Past Surgical History: Other (Gastric Sleeve 01/2021) Social history: denies: smoking, alcohol abuse Family history: no significant family history Medications and Allergies Allergies Allergy/AdvReac Type Severity Reaction Status Date / Time No Known Allergies Allergy Verified 03/08/21 11:44 Home Medications Medication Instructions Recorded Confirmed Last Taken Type No Known Home Medications [No 02/15/21 02/15/21 Unknown History Reported Home Medications] Active Meds: Active Medications Acetaminophen (Acetaminophen 325 Mg Tab) 650 mg PO Q4H PRN PRN Reason: Pain MILD(1-3)/Fever >100.5/RASMUSSEN Heparin Sodium (Porcine) (Heparin 5,000 Unit/1 Ml Vial) 5,000 unit SUB-Q Q12HR LESLIE Last Admin: 03/08/21 22:30 Dose: 5,000 unit Documented by: Hydromorphone HCl (Hydromorphone 1 Mg/1 Ml Inj) 1 mg IV Q3H PRN PRN Reason: Pain , Severe (7-10) Dextrose/Sodium Chloride (D5ns) 1,000 mls @ 125 mls/hr IV DIRECT LESLIE Metoclopramide HCl (Metoclopramide 10 Mg/2 Ml Inj) 10 mg IV Q6H LESLIE Morphine Sulfate (Morphine 2 Mg/1 Ml Inj) 2 mg IV Q4H PRN PRN Reason: Pain, Moderate (4-6) Last Admin: 03/09/21 05:54 Dose: 2 mg Documented by: Ondansetron HCl (Ondansetron 4 Mg/2 Ml Inj) 4 mg IV Q6H PRN PRN Reason: Nausea And Vomiting Pantoprazole Sodium (Pantoprazole 40 Mg Inj) 40 mg IV BID LESLIE Promethazine HCl (Promethazine 12.5 Mg Rect Supp) 12.5 mg ME Q6H PRN PRN Reason: Nausea And Vomiting Scopolamine (Scopolamine Transdermal Patch 72 Hr) 1 each TD Q3D LESLIE Sodium Chloride (Sodium Chloride 0.9% 10 Ml Flush Syringe) 10 ml IV BID LESLIE Last Admin: 03/08/21 22:31 Dose: 10 ml Documented by: Sodium Chloride (Sodium Chloride 0.9% 10 Ml Flush Syringe) 10 ml IV PRN PRN PRN Reason: LINE FLUSH I HAVE REVIEWED/RECONCILED MEDICATIONS Review of Systems - Review of Systems All systems: negative (as noted in the HPI.) Exam - Constitutional Vital Signs: Temp Pulse Resp BP Pulse Ox 97.7 F 88 16 125/70 95 03/09/21 07:46 03/09/21 07:46 03/09/21 07:46 03/09/21 07:46 03/09/21 07:46 General appearance: no acute distress - EENT Eyes: PERRL, EOM intact ENT: hearing intact, clear oral mucosa - Neck Neck: supple, normal ROM - Respiratory Respiratory effort: normal Respiratory: bilateral: CTA - Cardiovascular Rhythm: regular Heart Sounds: Present: S1 & S2 Extremities: no ischemia, No edema - Gastrointestinal General gastrointestinal: Present: soft, tender (Minimal epigastric tenderness), non-distended - Labs CBC & Chem 7: 03/09/21 05:00 03/09/21 05:00 Lab Results: Laboratory Results - last 24 hr 03/08/21 03/08/21 03/08/21 12:25 12:25 12:25 WBC 6.6 RBC 5.11 H Hgb 14.1 Hct 42.0 MCV 82 MCH 28 MCHC 34 RDW 13.9 Plt Count 463 H Lymph % (Auto) 28.9 [place] % (Auto) 5.5 Eos % (Auto) 0.5 Baso % (Auto) 1.0 Lymph # (Auto) 1.9 [place] # (Auto) 0.4 Eos # (Auto) 0.0 Baso # (Auto) 0.1 Seg Neutrophils % 64.1 Seg Neutrophils # 4.2 Sodium 143 Potassium 3.9 Chloride 105.1 Carbon Dioxide 21 L Anion Gap 21 BUN 12 Creatinine 0.6 Estimated GFR > 60 BUN/Creatinine Ratio 20 Glucose 105 H Calcium 10.1 Total Bilirubin 0.50 AST 60 H ALT 66 H Alkaline Phosphatase 109 Total Protein 8.7 H Albumin 4.7 Albumin/Globulin Ratio 1.2 Lipase 74 H HCG, Qual Negative Urine Color Urine Turbidity Urine pH Ur Specific [place] Urine Protein Urine Glucose (UA) Urine Ketones Urine Blood Urine Nitrite Urine Bilirubin Urine Urobilinogen Ur Leukocyte Esterase Urine WBC (Auto) Urine RBC (Auto) U Epithel Cells (Auto) Urine Mucus 03/08/21 03/09/21 03/09/21 12:41 05:00 05:00 WBC 7.0 RBC 4.37 Hgb 12.1 Hct 36.1 MCV 83 MCH 28 MCHC 34 RDW 13.9 Plt Count 377 Lymph % (Auto) 44.2 H [place] % (Auto) 8.9 H Eos % (Auto) 1.0 Baso % (Auto) 1.3 Lymph # (Auto) 3.1 [place] # (Auto) 0.6 Eos # (Auto) 0.1 Baso # (Auto) 0.1 Seg Neutrophils % 44.6 Seg Neutrophils # 3.1 Sodium 144 Potassium 3.7 Chloride 109.3 H Carbon Dioxide 22 Anion Gap 16 BUN 12 Creatinine 0.5 L Estimated GFR > 60 BUN/Creatinine Ratio 24 Glucose 125 H Calcium 9.3 Total Bilirubin 0.50 AST 42 H ALT 57 H Alkaline Phosphatase 89 Total Protein 7.2 Albumin 3.9 Albumin/Globulin Ratio 1.2 Lipase HCG, Qual Urine Color [place] Urine Turbidity Clear Urine pH 5.0 Ur Specific [place] 1.029 Urine Protein 30 mg/dl Urine Glucose (UA) Neg Urine Ketones 80 Urine Blood Neg Urine Nitrite Neg Urine Bilirubin Neg Urine Urobilinogen 4.0 Ur Leukocyte Esterase Neg Urine WBC (Auto) 2.0 Urine RBC (Auto) 1.0 U Epithel Cells (Auto) 1.0 Urine Mucus 3+ Assessment and Plan - Patient Problems (1) Intractable nausea and vomiting Current Visit: Yes Status: Acute Plan to address problem: - Epigastric pain and N/V improved while NPO, and able to tolerate liquid sips overnight. - No melena to suggest severe PUD. - Note made of surgery plans for UGI, and protonix/antiemetics. - No indication for emergent EGD at present. - Agree with management/plan by Surgery at present. Will sign off; please call with questions.
[2021-03-09] MEDS ORDERED: PROMETHAZINE 12.5 MG RECT SUPP PR PRN (10:00)
[2021-03-09] MEDS: PANTOPRAZOLE 40 MG INJ IV SCH ×2 (10:00→22:43)
[2021-03-09] MEDS: METOCLOPRAMIDE 10 MG/2 ML INJ IV SCH ×3 (10:01→22:52)
[2021-03-09] MEDS: HEPARIN 5,000 UNIT/1 ML VIAL SUB-Q SCH ×2 (11:09→22:43)
[2021-03-09] MEDS: SCOPOLAMINE TRANSDERMAL PATCH 72 HR TD SCH (11:09)
--- NOTE | 2021-03-09 11:24 | Fluoroscopy Report ---
Limited water-soluble esophagram Indication: post op gastric sleeve, n/v. Technique: Single contrast water-soluble (120 mL Gastrografin) technique utilized to evaluate the es ophagus, postoperative stomach, and proximal small bowel. Findings: No mucosal irregularity, mass, mass effect, or critical stenosis. No leak was identified in the post operative stomach. Contrast did pass distally into the duodenal C-loop and proximal jejunum. There we re no abnormal tertiary contractions as seen with dysmotility. There was mild gastroesophageal reflux in the distal one third of the esophagus. Impression: 1. No evidence of a postoperative leak. 2. Mild gastroesophageal reflux. Fluoroscopic time: 1.6 minutes Number of fluoroscopic images: 18 Signer Name: Hira Ramos MD Signed: 03/09/2021 11:19 AM Workstation Name: [id number]
--- NOTE | 2021-03-09 22:03 | Progress Note ---
Assessment and Plan - Patient Problems (1) Intractable nausea and vomiting Current Visit: Yes Status: Acute Plan to address problem: IVF normal saline for now IV Reglan and IV Zofran for now 'surgery consult and GI consult appreciated advance diet as tolerated if patient is tolerating diet will discharge her tomorrow (2) Dehydration Current Visit: Yes Status: Acute Plan to address problem: IV normal saline for now (3) Acute gastritis Current Visit: Yes Status: Acute Qualifiers: Gastritis type: unspecified gastritis Plan to address problem: IV Protonix initiated (4) DVT prophylaxis Current Visit: Yes Status: Acute Plan to address problem: On heparin and GI prophylaxis Subjective Date of service: 03/09/21 Principal diagnosis: Intractable nausea and vomiting Interval history: 35-year-old -[place] female with history of obesity and GERD with recent gastric sleeve surgery on February 21, 2021 comes in for epigastric discomfort and persistent nausea and vomiting for the last 24 hours. Vomited about 6-8 times. Unable to hold anything. Patient did well from 28 to x-ray which is about 15 days. Precipitating factor is unknown. Gastric sleeve surgery done in [facility] 03/09/2021 vomiting is improved Surgery and GI consult appreciated Objective - Constitutional Vitals: Vital Signs - 12hr 03/09/21 03/09/21 03/09/21 11:49 16:41 19:37 Temperature 98.1 F 97.8 F 98.7 F Pulse Rate 74 73 85 Respiratory 16 16 16 Rate Blood Pressure 114/64 153/93 124/59 O2 Sat by Pulse 98 100 100 Oximetry General appearance: Present: no acute distress, well-nourished - EENT Eyes: PERRL, EOM intact ENT: hearing intact, clear oral mucosa Ears: bilateral: normal - Neck Neck: supple, normal ROM - Respiratory Respiratory effort: normal Respiratory: bilateral: CTA - Breasts Breasts: normal - Cardiovascular Heart rate: 78 Rhythm: regular Heart Sounds: Present: S1 & S2. Absent: gallop, rub Extremities: pulses intact, No edema, normal color, Full ROM - Gastrointestinal General gastrointestinal: Present: soft, non-tender, non-distended, normal bowel sounds - Genitourinary Female genitourinary: normal - Integumentary Integumentary: clear, warm, dry - Musculoskeletal Musculoskeletal: 1, strength equal bilaterally - Neurologic Neurologic: moves all extremities - Psychiatric Psychiatric: memory intact, appropriate mood/affect, intact judgment & insight - Labs CBC & Chem 7: 03/10/21 07:54 03/10/21 07:54 Labs: Abnormal lab results 03/09/21 03/09/21 Range/Units 05:00 05:00 Lymph % (Auto) 44.2 H (13.4-35.0) % [place] % (Auto) 8.9 H (0.0-7.3) % Chloride 109.3 H (98-107) mmol/L Creatinine 0.5 L (0.6-1.2) mg/dL Glucose 125 H (65-100) mg/dL AST 42 H (5-40) units/L ALT 57 H (7-56) units/L
[2021-03-09] MEDS: HYDROmorphone 1 MG/1 ML INJ IV PRN (22:53)
[2021-03-10] MEDS: METOCLOPRAMIDE 10 MG/2 ML INJ IV SCH ×3 (04:36→16:00)
[2021-03-10 08:30] LABS: Basophils % (Auto) 0.9 % (0.0-1.8); Eosinophils # (Auto) 0.1 K/mm3 (0.0-0.4); Eosinophils % (Auto) 1.8 % (0.0-4.3); Hematocrit 33.6 % (30.3-42.9); Hemoglobin 11.1 gm/dl (10.1-14.3); Lymphocytes # (Auto) 2.2 K/mm3 (1.2-5.4); Mean Corpuscular HGB Conc 33 % (30-34); Mean Corpuscular Volume 82 fl (79-97); Monocytes # (Auto) 0.4 K/mm3 (0.0-0.8); Monocytes % (Auto) 6.9 % (0.0-7.3); Platelet Count 366 K/mm3 (140-440); Red Cell Distribution Width 14.2 % (13.2-15.2)
[2021-03-10 08:52] LABS: Alanine Aminotransferase 70 units/L (7-56); Albumin 3.7 g/dL (3.9-5); Blood Urea Nitrogen 6 mg/dL (7-17); Calcium 9.3 mg/dL (8.4-10.2); Hemolysis Index 3
[2021-03-10 08:53] LABS: BUN/Creatinine Ratio 12
[2021-03-10] MEDS ORDERED: POTASSIUM CHLORIDE 20 MEQ PACKET FEEDTUBE ONE (10:07)
[2021-03-10] MEDS: PANTOPRAZOLE 40 MG INJ IV SCH (10:20)
[2021-03-10] MEDS: HEPARIN 5,000 UNIT/1 ML VIAL SUB-Q SCH ×2 (10:20→21:32)
[2021-03-10] MEDS: D5W/0.9% NACL 1,000 ML IV SCH ×2 (10:28→20:07)
[2021-03-10] MEDS: HYDROmorphone 1 MG/1 ML INJ IV PRN ×2 (14:00→20:07)
[2021-03-10] MEDS: ONDANSETRON 4 MG/2 ML INJ IV PRN (14:00)
--- NOTE | 2021-03-10 14:56 | Progress Note ---
Assessment and Plan 35 yo F s/p lap gastric sleeve, hiatal hernia repair on 02/21/21 now with intractable n/v CT A/P - post op gastric sleeve changes, no hiatal hernia. No free fluid, free air. Possible mild gastritis Pt stable. Tolerating B1 diet. Plan: 1. Bariatric stage I diet 2. IVF 3. continue antiemetics - will dc with scopolamine TD q3D, regaln PO q6h. Pt has phenergan [place], zofran PO at home. 4. prn pain control 5. OOB/ambulate 6. PPI iV -> will dc with protonix PO daily Pt encouraged to drink water as 1' source of PO intake if other clear liquids are too sweet. Encouraged intake of at least 64 fl oz of water daily along with vitamins and protein supplements she was instructed to take by Dr. Chen. Ok to dc home. Notified Dr. Vargas. Pt to follow up with Dr. Chen next week. Subjective Date of service: 03/10/21 Narrative: Pt seen and examined. States she feels better. Had one episode of emesis last night after receiving IV medication but not sure which one. However has been tolerating oral liquid diet. States that the juices and jellos are too sweet but she can drink water without difficulty. No f/c. No cp, sob. Pain is controlled. Objective - General physical appearance Narrative Exam: Gen.: Awake, alert, oriented x3. No apparent distress ENT: Trachea midline. No lymphadenopathy. No scleral icterus or conjunctival pallor CV: S1, S2 present Respiratory: No audible wheezes Extremities: No clubbing, cyanosis, edema - Labs 03/10/21 07:54 03/10/21 07:54 Diabetes panel 03/10/21 Range/Units 07:54 Sodium 142 (137-145) mmol/L Potassium 3.3 L (3.6-5.0) mmol/L Chloride 106.9 (98-107) mmol/L Carbon Dioxide 28 (22-30) mmol/L BUN 6 L (7-17) mg/dL Creatinine 0.5 L (0.6-1.2) mg/dL Glucose 119 H (65-100) mg/dL Calcium 9.3 (8.4-10.2) mg/dL AST 52 H (5-40) units/L ALT 70 H (7-56) units/L Alkaline Phosphatase 82 (35-129) units/L Total Protein 6.4 (6.3-8.2) g/dL Albumin 3.7 L (3.9-5) g/dL Calcium panel 03/10/21 Range/Units 07:54 Calcium 9.3 (8.4-10.2) mg/dL Albumin 3.7 L (3.9-5) g/dL Pituitary panel 03/10/21 Range/Units 07:54 Sodium 142 (137-145) mmol/L Potassium 3.3 L (3.6-5.0) mmol/L Chloride 106.9 (98-107) mmol/L Carbon Dioxide 28 (22-30) mmol/L BUN 6 L (7-17) mg/dL Creatinine 0.5 L (0.6-1.2) mg/dL Glucose 119 H (65-100) mg/dL Calcium 9.3 (8.4-10.2) mg/dL Adrenal panel 03/10/21 Range/Units 07:54 Sodium 142 (137-145) mmol/L Potassium 3.3 L (3.6-5.0) mmol/L Chloride 106.9 (98-107) mmol/L Carbon Dioxide 28 (22-30) mmol/L BUN 6 L (7-17) mg/dL Creatinine 0.5 L (0.6-1.2) mg/dL Glucose 119 H (65-100) mg/dL Calcium 9.3 (8.4-10.2) mg/dL Total Bilirubin 0.50 (0.1-1.2) mg/dL AST 52 H (5-40) units/L ALT 70 H (7-56) units/L Alkaline Phosphatase 82 (35-129) units/L Total Protein 6.4 (6.3-8.2) g/dL Albumin 3.7 L (3.9-5) g/dL
[2021-03-10] MEDS ORDERED: METOCLOPRAMIDE 10 MG TAB PO SCH (15:00)
--- NOTE | 2021-03-10 16:03 | Discharge Summary ---
Providers - Providers Date of Admission: 03/08/21 19:08 Date of discharge: 03/12/21 Attending physician: RHIANNON AKINS 03/08/21 19:34 Consult to Physician [CONS] Stat Comment: Consulting Provider: MAIK CONCEPCION Physician Instructions: Reason For Exam: post op gastric sleeve, abd pain, n/v Primary care physician: [employer] Hospitalization Condition: Fair Hospital course: Subjective Date of service: 03/12/21 Principal diagnosis: Intractable nausea and vomiting Interval history: 35-year-old -[place] female with history of obesity and GERD with recent gastric sleeve surgery on February 21, 2021 comes in for epigastric discomfort and persistent nausea and vomiting for the last 24 hours. Vomited about 6-8 times. Unable to hold anything. Patient did well from 28 to x-ray which is about 15 days. Precipitating factor is unknown. Gastric sleeve surgery done in [facility] 03/09/2021 vomiting is improved Surgery and GI consult appreciated 03/10/2021 Patient has 2 episodes of vomiting Patient feels slightly better Tolerating clears with difficulty 03/11/2021 Still nauseous Able to tolerate cold liquids Possible discharge tomorrow if better Assessment and Plan - Patient Problems (1) Intractable nausea and vomiting Current Visit: Yes Status: Acute Plan to address problem: IVF normal saline for now IV Reglan and IV Zofran for now 'surgery consult and GI consult appreciated advance diet as tolerated Tried to discharge the patient today but patient still has vomiting (2) Dehydration Current Visit: Yes Status: Acute Plan to address problem: IV normal saline for now (3) Acute gastritis Current Visit: Yes Status: Acute Qualifiers: Gastritis type: unspecified gastritis Plan to address problem: IV Protonix initiated (4) DVT prophylaxis Current Visit: Yes Status: Acute Plan to address problem: On heparin and GI prophylaxis (5) Discharge planning issues Current Visit: Yes Status: Acute Plan to address problem: Possible discharge tomorrow Disposition: [place]-01 TO HOME OR SELFCARE Final Discharge Diagnosis (Prints w/discharge instructions): Acute gastritis - Discharge Diagnoses (1) Intractable nausea and vomiting Status: Acute (2) Dehydration Status: Acute (3) Acute gastritis Status: Acute Qualifiers: Gastritis type: unspecified gastritis (4) DVT prophylaxis Status: Acute Core Measure Documentation - Palliative Care Palliative Care/ Comfort Measures: Not Applicable - Core Measures Any of the following diagnoses?: none Exam - Constitutional Vitals: Temp Pulse Resp BP Pulse Ox 98.7 F 75 20 115/63 99 03/09/21 23:58 03/09/21 23:58 03/10/21 14:00 03/09/21 23:58 03/09/21 23:58 General appearance: Present: no acute distress, well-nourished - EENT Eyes: Present: PERRL ENT: hearing intact, clear oral mucosa - Neck Neck: Present: supple, normal ROM - Respiratory Respiratory effort: normal Respiratory: bilateral: CTA - Cardiovascular Heart Sounds: Present: S1 & S2. Absent: rub, click - Extremities Extremities: pulses symmetrical, No edema Peripheral Pulses: within normal limits - Abdominal General gastrointestinal: Present: soft, non-tender, non-distended, normal bowel sounds Female genitourinary: Present: normal - Integumentary Integumentary: Present: clear, warm, dry - Musculoskeletal Musculoskeletal: gait normal, strength equal bilaterally - Psychiatric Psychiatric: appropriate mood/affect, intact judgment & insight - Neurologic Neurologic: CNII-XII intact, moves all extremities Plan Activity: no restrictions Diet: advance as tolerated Follow up with: JESSI ALEX MD [Staff Physician] - 7 Days PRIMARY CARE, [Primary Care Provider] - 7 Days Prescriptions: Pantoprazole [Protonix] 40 mg PO QDAY #30 tablet Metoclopramide HCl [Reglan TAB] 10 mg PO Q6H #30 tablet Scopolamine [Transderm-Scop] 1 each TD Q3D #10 patch
[2021-03-10] MEDS: PANTOPRAZOLE 40 MG TAB PO SCH (21:32)
--- NOTE | 2021-03-10 21:39 | Progress Note ---
Assessment and Plan - Patient Problems (1) Intractable nausea and vomiting Current Visit: Yes Status: Acute Plan to address problem: IVF normal saline for now IV Reglan and IV Zofran for now 'surgery consult and GI consult appreciated advance diet as tolerated Tried to discharge the patient today but patient still has vomiting (2) Dehydration Current Visit: Yes Status: Acute Plan to address problem: IV normal saline for now (3) Acute gastritis Current Visit: Yes Status: Acute Qualifiers: Gastritis type: unspecified gastritis Plan to address problem: IV Protonix initiated (4) DVT prophylaxis Current Visit: Yes Status: Acute Plan to address problem: On heparin and GI prophylaxis (5) Discharge planning issues Current Visit: Yes Status: Acute Plan to address problem: Possible discharge tomorrow Subjective Date of service: 03/10/21 Principal diagnosis: Intractable nausea and vomiting Interval history: 35-year-old -[place]ian female with history of obesity and GERD with recent gastric sleeve surgery on February 21, 2021 comes in for epigastric discomfort and persistent nausea and vomiting for the last 24 hours. Vomited about 6-8 times. Unable to hold anything. Patient did well from 28 to x-ray which is about 15 days. Precipitating factor is unknown. Gastric sleeve surgery done in [facility] 03/09/2021 vomiting is improved Surgery and GI consult appreciated 03/10/2021 Patient has 2 episodes of vomiting Patient feels slightly better Tolerating clears with difficulty Objective - Constitutional Vitals: Vital Signs - 12hr 03/10/21 03/10/21 03/10/21 11:38 14:00 19:21 Temperature 98.3 F 98.4 F Pulse Rate 73 82 Respiratory 16 20 16 Rate Blood Pressure 139/83 136/90 O2 Sat by Pulse 98 98 Oximetry General appearance: Present: no acute distress, well-nourished - EENT Eyes: PERRL, EOM intact ENT: hearing intact, clear oral mucosa Ears: bilateral: normal - Neck Neck: supple, normal ROM - Respiratory Respiratory effort: normal Respiratory: bilateral: CTA - Breasts Breasts: normal - Cardiovascular Heart rate: 78 Rhythm: regular Heart Sounds: Present: S1 & S2. Absent: gallop, rub Extremities: pulses intact, No edema, normal color, Full ROM - Gastrointestinal General gastrointestinal: Present: soft, non-tender, non-distended, normal bowel sounds - Genitourinary Female genitourinary: normal - Integumentary Integumentary: clear, warm, dry - Musculoskeletal Musculoskeletal: 1, strength equal bilaterally - Neurologic Neurologic: moves all extremities - Psychiatric Psychiatric: memory intact, appropriate mood/affect, intact judgment & insight - Labs CBC & Chem 7: 03/10/21 07:54 03/10/21 07:54 Labs: Abnormal lab results 03/10/21 03/10/21 Range/Units 07:54 07:54 MCH 27 L (28-32) pg Lymph % (Auto) 43.0 H (13.4-35.0) % Potassium 3.3 L (3.6-5.0) mmol/L BUN 6 L (7-17) mg/dL Creatinine 0.5 L (0.6-1.2) mg/dL Glucose 119 H (65-100) mg/dL AST 52 H (5-40) units/L ALT 70 H (7-56) units/L Albumin 3.7 L (3.9-5) g/dL
[2021-03-11] MEDS: METOCLOPRAMIDE 10 MG/2 ML INJ IV SCH ×5 (04:35→22:15)
[2021-03-11] MEDS: MORPHINE 2 MG/1 ML INJ IV PRN ×2 (04:36→09:52)
[2021-03-11] MEDS: ONDANSETRON 4 MG/2 ML INJ IV PRN (04:36)
[2021-03-11] MEDS: D5W/0.9% NACL 1,000 ML IV SCH ×2 (04:39→22:13)
[2021-03-11] MEDS: HEPARIN 5,000 UNIT/1 ML VIAL SUB-Q SCH ×2 (09:49→22:15)
[2021-03-11] MEDS: PANTOPRAZOLE 40 MG TAB PO SCH (09:53)
[2021-03-11] MEDS ORDERED: THIAMINE 100 MG, FOLIC ACID 1 MG, MULTIPLE VITAMIN INJ, ADULT 10 ML in SODIUM CHLORIDE ... IV ONE (12:30)
[2021-03-11] MEDS: LORazepam 2 MG/ML VIAL IV SCH ×2 (12:54→22:14)
[2021-03-11] MEDS: KETOROLAC 30 MG/1 ML INJ IV SCH ×2 (12:55→22:14)
[2021-03-11 13:19] LABS: Blood Urea Nitrogen 3 mg/dL (7-17); Calcium 9.6 mg/dL (8.4-10.2); Hemolysis Index 5
[2021-03-11 13:20] LABS: BUN/Creatinine Ratio 6
--- NOTE | 2021-03-11 15:08 | Progress Note ---
Assessment and Plan 35 yo F s/p lap gastric sleeve, hiatal hernia repair on 02/21/21 now with intractable n/v CT A/P - post op gastric sleeve changes, no hiatal hernia. No free fluid, free air. Possible mild gastritis UGI - mild reflux. No obstruction, stricture Pt stable. Tolerating ice water. Plan: 1. continue Bariatric stage I diet 2. IVF. Banana bagx1 today. 3. continue antiemetics - scopolamine TD, zofran IV prn, reglan IV q6, phenergan [place] PRN 4. start low dose ativan 5. prn pain control 6. OOB/ambulate 7. PPI iV Will continue to monitor patient for clinical improvement. Thank you, please call with questions or concerns Subjective Date of service: 03/11/21 Narrative: Patient seen and examined. Patient's discharge held as she started to have nausea and vomiting again yesterday afternoon. Still complaining of nausea. States she is spitting up after drinking some liquids. She has been doing better with ice water which she states has been staying down. No fevers or c hills. She is ambulating. She is passing flatus but has not had a bowel movement in a few days. Objective Vital Signs - 12hr 03/11/21 03/11/21 03/11/21 04:34 07:08 11:44 Temperature 98.4 F 98.6 F 98.4 F Pulse Rate 78 89 74 Respiratory 16 18 18 Rate Blood Pressure 127/79 Blood Pressure 143/74 144/81 [Right] O2 Sat by Pulse 98 97 99 Oximetry - General physical appearance Narrative Exam: Gen.: Awake, alert, oriented x3. No apparent distress ENT: Trachea midline. No lymphadenopathy. No scleral icterus or conjunctival pallor CV: S1, S2 present Respiratory: No audible wheezes Abdomen: Soft Extremities: No clubbing, cyanosis, edema - Labs 03/10/21 07:54 03/11/21 12:29 Diabetes panel 03/11/21 Range/Units 12:29 Sodium 136 L (137-145) mmol/L Potassium 3.3 L (3.6-5.0) mmol/L Chloride 99.5 (98-107) mmol/L Carbon Dioxide 26 (22-30) mmol/L BUN 3 L (7-17) mg/dL Creatinine 0.5 L (0.6-1.2) mg/dL Glucose 128 H (65-100) mg/dL Calcium 9.6 (8.4-10.2) mg/dL Calcium panel 03/11/21 Range/Units 12:29 Calcium 9.6 (8.4-10.2) mg/dL Phosphorus 2.90 (2.5-4.5) mg/dL Pituitary panel 03/11/21 Range/Units 12:29 Sodium 136 L (137-145) mmol/L Potassium 3.3 L (3.6-5.0) mmol/L Chloride 99.5 (98-107) mmol/L Carbon Dioxide 26 (22-30) mmol/L BUN 3 L (7-17) mg/dL Creatinine 0.5 L (0.6-1.2) mg/dL Glucose 128 H (65-100) mg/dL Calcium 9.6 (8.4-10.2) mg/dL Adrenal panel 03/11/21 Range/Units 12:29 Sodium 136 L (137-145) mmol/L Potassium 3.3 L (3.6-5.0) mmol/L Chloride 99.5 (98-107) mmol/L Carbon Dioxide 26 (22-30) mmol/L BUN 3 L (7-17) mg/dL Creatinine 0.5 L (0.6-1.2) mg/dL Glucose 128 H (65-100) mg/dL Calcium 9.6 (8.4-10.2) mg/dL
[2021-03-11] MEDS ORDERED: PANTOPRAZOLE 40 MG INJ IV SCH (22:00)
--- NOTE | 2021-03-11 23:35 | Progress Note ---
Assessment and Plan - Patient Problems (1) Intractable nausea and vomiting Current Visit: Yes Status: Acute Plan to address problem: IVF normal saline for now IV Reglan and IV Zofran for now 'surgery consult and GI consult appreciated advance diet as tolerated Tried to discharge the patient today but patient still has vomiting (2) Dehydration Current Visit: Yes Status: Acute Plan to address problem: IV normal saline for now (3) Acute gastritis Current Visit: Yes Status: Acute Qualifiers: Gastritis type: unspecified gastritis Plan to address problem: IV Protonix initiated (4) DVT prophylaxis Current Visit: Yes Status: Acute Plan to address problem: On heparin and GI prophylaxis (5) Discharge planning issues Current Visit: Yes Status: Acute Plan to address problem: Possible discharge tomorrow Subjective Date of service: 03/11/21 Principal diagnosis: Intractable nausea and vomiting Interval history: 35-year-old -[place] female with history of obesity and GERD with recent gastric sleeve surgery on February 21, 2021 comes in for epigastric discomfort and persistent nausea and vomiting for the last 24 hours. Vomited about 6-8 times. Unable to hold anything. Patient did well from 28 to x-ray which is about 15 days. Precipitating factor is unknown. Gastric sleeve surgery done in [facility] 03/09/2021 vomiting is improved Surgery and GI consult appreciated 03/10/2021 Patient has 2 episodes of vomiting Patient feels slightly better Tolerating clears with difficulty 03/11/2021 Still nauseous Able to tolerate cold liquids Possible discharge tomorrow if better Objective - Constitutional Vitals: Vital Signs - 12hr 03/11/21 03/11/21 03/11/21 11:44 15:47 19:10 Temperature 98.4 F 98.4 F 98.6 F Pulse Rate 74 80 79 Respiratory 18 16 16 Rate Blood Pressure 172/100 Blood Pressure 144/81 136/67 [Right] O2 Sat by Pulse 99 97 97 Oximetry 03/11/21 22:27 Temperature Pulse Rate 91 H Respiratory 20 Rate Blood Pressure Blood Pressure 132/77 [Right] O2 Sat by Pulse 96 Oximetry General appearance: Present: no acute distress, well-nourished - EENT Eyes: PERRL, EOM intact ENT: hearing intact, clear oral mucosa Ears: bilateral: normal - Neck Neck: supple, normal ROM - Respiratory Respiratory effort: normal Respiratory: bilateral: CTA - Breasts Breasts: normal - Cardiovascular Rhythm: regular Heart Sounds: Present: S1 & S2. Absent: gallop, rub Extremities: pulses intact, No edema, normal color, Full ROM - Gastrointestinal General gastrointestinal: Present: soft, non-tender, non-distended, normal bowel sounds - Genitourinary Female genitourinary: normal - Integumentary Integumentary: clear, warm, dry - Musculoskeletal Musculoskeletal: 1, strength equal bilaterally - Neurologic Neurologic: moves all extremities - Psychiatric Psychiatric: memory intact, appropriate mood/affect, intact judgment & insight - Labs CBC & Chem 7: 03/10/21 07:54 03/11/21 12:29 Labs: Abnormal lab results 03/11/21 Range/Units 12:29 Sodium 136 L (137-145) mmol/L Potassium 3.3 L (3.6-5.0) mmol/L BUN 3 L (7-17) mg/dL Creatinine 0.5 L (0.6-1.2) mg/dL Glucose 128 H (65-100) mg/dL
[2021-03-12] MEDS: KETOROLAC 30 MG/1 ML INJ IV SCH ×2 (04:02→13:19)
[2021-03-12] MEDS: D5W/0.9% NACL 1,000 ML IV SCH (04:02)
[2021-03-12] MEDS: METOCLOPRAMIDE 10 MG/2 ML INJ IV SCH ×3 (04:03→18:20)
[2021-03-12] MEDS: LORazepam 2 MG/ML VIAL IV SCH (04:03)
[2021-03-12] MEDS: HEPARIN 5,000 UNIT/1 ML VIAL SUB-Q SCH (10:18)
[2021-03-12] MEDS: SCOPOLAMINE TRANSDERMAL PATCH 72 HR TD SCH (11:00)
--- NOTE | 2021-03-12 11:43 | Progress Note ---
Assessment and Plan 35 yo F s/p lap gastric sleeve, hiatal hernia repair on 02/21/21 now with intractable n/v CT A/P - post op gastric sleeve changes, no hiatal hernia. No free fluid, free air. Possible mild gastritis UGI - mild reflux. No obstruction, stricture Pt stable. Tolerating PO clears Plan: 1. continue Bariatric stage I diet 2. gentle IVF 3. continue antiemetics - will dc zofran. c/w scopolamine TD, reglan IV q6, phenergan SC PRN 4. start low dose ativan - change to PO 5. prn pain control 6. OOB/ambulate 7. PPI - change to PO If patient continues to improve and is able to tolerate PO medications, will consider dc in next 24 hours. Thank you, please call with questions or concerns Subjective Date of service: 03/11/21 Narrative: Subjective Date of service: 03/12/21 Narrative: Patient seen and examined. Patient states she is tolerating liquids. No emesis. 1 episode of nausea overnight. Has not asked for zofran as she feels it makes her nauseated. Has not asked for phenergan suppository. Feels well on current pain regimen, reglan, scopolamine patch, and ativan. No f/c. Objective Vital Signs - 12hr 03/12/21 03/12/21 03:44 07:39 Temperature 98.5 F 98.4 F Pulse Rate 83 77 Respiratory 16 16 Rate Blood Pressure 144/84 120/77 O2 Sat by Pulse 95 97 Oximetry - General physical appearance Narrative Exam: Gen: AAox3. NAD CV: s1, S2+ resp: even and unlabored Ext: no c/c/e - Labs 03/10/21 07:54 03/11/21 12:29 Diabetes panel 03/11/21 Range/Units 12:29 Sodium 136 L (137-145) mmol/L Potassium 3.3 L (3.6-5.0) mmol/L Chloride 99.5 (98-107) mmol/L Carbon Dioxide 26 (22-30) mmol/L BUN 3 L (7-17) mg/dL Creatinine 0.5 L (0.6-1.2) mg/dL Glucose 128 H (65-100) mg/dL Calcium 9.6 (8.4-10.2) mg/dL Calcium panel 03/11/21 Range/Units 12:29 Calcium 9.6 (8.4-10.2) mg/dL Phosphorus 2.90 (2.5-4.5) mg/dL Pituitary panel 03/11/21 Range/Units 12:29 Sodium 136 L (137-145) mmol/L Potassium 3.3 L (3.6-5.0) mmol/L Chloride 99.5 (98-107) mmol/L Carbon Dioxide 26 (22-30) mmol/L BUN 3 L (7-17) mg/dL Creatinine 0.5 L (0.6-1.2) mg/dL Glucose 128 H (65-100) mg/dL Calcium 9.6 (8.4-10.2) mg/dL Adrenal panel 03/11/21 Range/Units 12:29 Sodium 136 L (137-145) mmol/L Potassium 3.3 L (3.6-5.0) mmol/L Chloride 99.5 (98-107) mmol/L Carbon Dioxide 26 (22-30) mmol/L BUN 3 L (7-17) mg/dL Creatinine 0.5 L (0.6-1.2) mg/dL Glucose 128 H (65-100) mg/dL Calcium 9.6 (8.4-10.2) mg/dL
[2021-03-12] MEDS ORDERED: LORazepam 0.5 MG TAB PO SCH (12:00)
[2021-03-12] MEDS ORDERED: PANTOPRAZOLE 40 MG TAB PO SCH (12:00)
[2021-03-12 16:02] VITALS: BP 123/83
== END 2021-03-12 08:45 | disposition home or self-care (01) ==
LOC: ED 11:37 → 3B-SURG 19:08
PROVIDERS: ADMIT Internal Medicine; ATTEND Internal Medicine
DX: K29.00 Acute gastritis without bleeding (principal); E86.0 Dehydration; K21.9 Gastro-esophageal reflux disease without esophagitis
CPT/HCPCS: 36415; 74177; 74220; 80048; 80053; 81001; 83690; 83735; 84100; 84703; 85025; 87641; 96361; 96365; 96366; 96372; 96375; 96376; 99285; C9113; G0378; J1170; J1644; J1885; J2060; J2270; J2405; J2765; J3411; J7030; J7042; J7120; Q9963; Q9967